=== PATIENT | female | born 1945 | race Caucasian/White ===

== ENCOUNTER 2017-08-08 08:53 | Inpatient (IN) | payer OTHER, BC ==
--- NOTE | 2017-08-08 09:13 | CPEKG ---
Heart Rate: 89 RR Interval: 674 P-R Interval: 136 QRSD Interval: 78 QT Interval: 368 QTC Interval: 448 P [place]: 72 QRS [place]: 22 T Wave [place]: 47 EKG Severity - ABNORMAL ECG - EKG Impression: ATRIAL-PACED COMPLEXES Electronically Signed By: Jim Rockwell 08-Aug-2017 12:17:24
[2017-08-08] MEDS ORDERED: KETOROLAC 30 MG/1 ML SDV IVP ONE (09:30)
[2017-08-08] MEDS ORDERED: ONDANSETRON 4 MG/2 ML VIAL IVP ONE (09:30)
[2017-08-08] MEDS ORDERED: HYDROmorphONE/DILAUDID 2 MG/ML INJ IVP ONE ×2 (09:30→13:01)
--- NOTE | 2017-08-08 09:38 | EDPHY ---
H & P Stated Complaint: sob/cp Time Seen by Provider: 08/08/17 09:15 - Personal History Current Tetanus/Diphtheria Vaccine: Yes - Medical/Surgical History Hx Asthma: No Hx Chronic Respiratory Disease: No Hx Diabetes: No Hx Cardiac Disease: Yes Hx Renal Disease: No Hx Cirrhosis: No Hx Alcoholism: No Hx HIV/AIDS: No Hx Splenectomy or Spleen Trauma: No Other PMH: cardiac disease/stents/pacemaker/RA - Social History Smoking Status: Former smoker Constitutional: Initial Vital Signs Temperature (C) 37 C 08/08/17 09:02 Heart Rate 76 08/08/17 09:02 Respiratory Rate 22 H 08/08/17 09:02 Blood Pressure 199/124 H 08/08/17 09:02 O2 Delivery Mode Nasal Cannula O2 (L/minute) 2 Allergies/Adverse Reactions: erythromycin base Allergy (Verified 08/08/17 08:57) Home Medications: Medication Instructions Recorded AMOXICILLIN 08/08/17 Amlodipine Besylate 08/08/17 Aspirin 81mg (*) 08/08/17 Atorvastatin Calcium 08/08/17 Lasix 08/08/17 Levothyroxine 08/08/17 Metoprolol Succinate 08/08/17 Potassium Chloride 08/08/17 Sertraline HCl 08/08/17 Vicodin 5-300 mg Tablet 08/08/17 Medical Decision Making - Diagnostics Imaging Results: Imaging Impressions Chest X-Ray 08/08/17 09:31 Impression: Moderate underlying bronchitis or possible pulmonary edema. Early infiltrate in both lower lobes versus atelectasis. Mild cardiomegaly. Other chronic findings, as above. Imaging: Discussed imaging studies w/ calliope player Radiologist, I viewed and interpreted images myself ED Course/Re-evaluation: CHIEF COMPLAINT: "I've got no air out here" HISTORY OF PRESENT ILLNESS: The patient is a 71 y/o female arriving with her family complaining of dyspnea worsening since arriving from [place] recently. Her medical history includes atrial fibrillation, CHF, hypertension, and CAD. She reports she has dyspnea at baseline while home in [place], but it has worsened significantly since arriving here and is much worse when lying flat. Symptoms are also exacerbated with exertion and even with talking. She has been using her CPAP to treat symptoms without alleviation. She's had a recent UTI that did not respond to a first course of antibiotics and pain spread to her left flank. She returned to her doctor and while waiting on urine cultures she was started on Cipro yesterday. She denies sensation of rapid heart rate, chest pain, nausea, vomiting, fever, recent trauma. REVIEW OF SYSTEMS: A 10 point review of systems was performed and is negative with the exception of the elements mentioned in the history of present illness. PHYSICAL EXAM: HR, BP 199/124, O2 Sat 94% on O2, RR. Temp noted General Appearance: Alert, well hydrated, appropriate, obese, slight tachypnea. Head: Atraumatic without scalp tenderness or obvious injury Eyes: Pupils equal, round, reactive to light and accommodation, EOMI, no trauma , no injection. Nose: Atraumatic, no rhinorrhea, clear. Throat: Mucus membranes moist. Neck: Supple, non-tender, no lymphadenopathy. Respiratory: No retractions, no distress, no wheezes, and no accessory muscle use. Lungs are clear to auscultation bilaterally. Few-word dyspnea and tachypnea. Cardiovascular: Regular rate and rhythm, no murmurs, rubs, or gallops. Good capillary refill all extremities. Gastrointestinal: Abdomen is soft, non-tender, non-distended, no masses, no rebound, no guarding, no peritoneal signs. Musculoskeletal: Normal active ROM of all extremities, atraumatic. Left CVA tenderness. Neurological: Alert, appropriate, and interactive. The patient has non-focal cranial nerves, motor, sensory, and cerebellar exam. Skin: No rashes, good turgor, no nodules on palpation. PAST MEDICAL HISTORY: CAD, atrial fibrillation, CHF - Lasix & CPAP, hyperlipidemia, hypertension, hypothyroidism PAST SURGICAL HISTORY: Pacemaker for bradycardia 2011, cardiac stent 2010; cholecystectomy SOCIAL HISTORY: Family at bedside. From [place], plans to drive back tomorrow. DIAGNOSTICS/PROCEDURES/CRITICAL CARE TIME: Chest x-ray: pulmonary edema consistent with CHF The 12 lead EKG was interpreted by myself. Atrial-paced rhythm, rate around 90. See hard copy and/or "tracemaster" electronic copy for interpretation. DIFFERENTIAL DIAGNOSIS: The differential diagnosis for the patient's shortness of breath and hypoxemia included but was not limited to pneumonia, myocardial infarction, acute mountain sickness, high altitude pulmonary edema, congestive heart failure, and pulmonary embolus. MEDICAL DECISION MAKING: This is a 71 y/o female with multiple comorbidities who is visiting with [place] and presents with azard-epna-nxgpennm dyspnea since arriving at altitude. She has dyspnea with speaking and is mildly tachypneic on exam. Lung sounds are clear. She does have left CVA tenderness and a known UTI. Consider CHF vs altitude-related dyspnea aggravating underlying disease. Plan for IV, labs, EKG , chest x-ray, antibiotics, and pain management. 30mg IV Toradol, 1mg IV Dilaudid, 4mg IV Zofran, 1gm IV Ceftriaxone, and 1L IV NS ordered. Nitro drip as needed to decrease afterload reduction. Chest x-ray shows bilateral pulmonary edema. BNP somewhat elevated at 370. Troponin normal. Nitro drip not administered as patient's BP has reduced to normal ranges. Reassessed patient and discussed work up. She continues to be uncomfortable. I' ve recommended admission for observation and to adjust medications for CHF symptoms, which she agrees to. Spoke with hospitalist service. Dr. Vaca accepts admission. - Data Points Laboratory Results: Laboratory Results 08/08/17 09:40 08/08/17 09:40 08/08/17 08/08/17 08/08/17 09:40 09:40 09:40 WBC 9.81 10^3/uL H 10^3/uL (3.80-9.50) RBC 4.36 10^6/uL 10^6/uL (4.18-5.33) Hgb 13.4 g/dL g/dL (12.6-16.3) Hct 40.1 % % (38.0-47.0) MCV 92.0 fL fL (81.5-99.8) MCH 30.7 pg pg (27.9-34.1) MCHC 33.4 g/dL g/dL (32.4-36.7) RDW 13.5 % % (11.5-15.2) Plt Count 177 10^3/uL 10^3/uL (150-400) MPV 9.9 fL fL (8.7-11.7) Neut % (Auto) 83.2 % H % (39.3-74.2) Lymph % (Auto) 5.8 % L % (15.0-45.0) Carver % (Auto) 6.9 % % (4.5-13.0) Eos % (Auto) 2.8 % % (0.6-7.6) Baso % (Auto) 0.5 % % (0.3-1.7) Nucleat RBC Rel Count 0.0 % % (0.0-0.2) Absolute Neuts (auto) 8.16 10^3/uL H 10^3/uL (1.70-6.50) Absolute Lymphs (auto) 0.57 10^3/uL L 10^3/uL (1.00-3.00) Absolute Monos (auto) 0.68 10^3/uL 10^3/uL (0.30-0.80) Absolute Eos (auto) 0.27 10^3/uL 10^3/uL (0.03-0.40) Absolute Basos (auto) 0.05 10^3/uL 10^3/uL (0.02-0.10) Absolute Nucleated RBC 0.00 10^3/uL 10^3/uL (0-0.01) Immature Gran % 0.8 % % (0.0-1.1) Immature Gran # 0.08 10^3/uL 10^3/uL (0.00-0.10) PT 14.2 SEC SEC (12.0-15.0) INR 1.08 (0.83-1.16) APTT 30.7 SEC SEC (23.0-38.0) D-Dimer 0.57 ug/mLFEU H ug/mLFEU (0.00-0.50) Sodium 139 mEq/L mEq/L (135-145) Potassium 3.9 mEq/L mEq/L (3.5-5.2) Chloride 104 mEq/L mEq/L (97-110) Carbon Dioxide 24 mEq/l mEq/l (22-31) Anion Gap 11 mEq/L mEq/L (8-16) BUN 16 mg/dL mg/dL (7-23) Creatinine 0.6 mg/dL mg/dL (0.6-1.0) Estimated GFR > 60 Glucose 190 mg/dL H mg/dL (70-100) Calcium 8.8 mg/dL mg/dL (8.5-10.4) Troponin I < 0.012 ng/mL ng/mL (0.000-0.034) NT-Pro-B Natriuret Pep 370 pg/mL H pg/mL (0-125) Medications Given: Discontinued Medications Hydromorphone HCl (Dilaudid) 1 mg IVP EDNOW ONE Stop: 08/08/17 09:31 Last Admin: 08/08/17 09:54 Dose: 1 mg Ceftriaxone Sodium/Dextrose (Rocephin 1 Gm (Premix)) 50 mls @ 100 mls/hr IV EDNOW ONE PRN Reason: Protocol Stop: 08/08/17 09:58 Last Admin: 08/08/17 09:56 Dose: 50 mls Sodium Chloride (Ns) 1,000 mls @ 0 mls/hr IV ONCE ONE; Wide Open PRN Reason: Protocol Stop: 08/08/17 09:50 Last Admin: 08/08/17 09:59 Dose: 1,000 mls Nitroglycerin/Dextrose (Nitroglycerin 200 Mcg/Ml (Premix)) 250 mls @ 0 mls/hr IV CONT ONE; Titrate PRN Reason: Protocol Stop: 08/08/17 10:30 Last Admin: 08/08/17 10:42 Dose: Not Given Ketorolac Tromethamine (Toradol) 30 mg IVP EDNOW ONE Stop: 08/08/17 09:31 Last Admin: 08/08/17 09:53 Dose: 30 mg Ondansetron HCl (Zofran) 4 mg IVP EDNOW ONE Stop: 08/08/17 09:31 Last Admin: 08/08/17 09:52 Dose: 4 mg Departure - Departure Disposition: [facility] Inpatient Acute Clinical Impression: Pyelonephritis, Orthopnea CHF exacerbation Qualifiers: Heart failure type: unspecified Qualified Code(s): I50.9 - Heart failure, unspecified Condition: Fair Referrals: YESSICA BELLO [Other] - As per Instructions Report Scribed for: Jim Rockwell Report Scribed by: Sherly Lauren Date of Report: 08/08/17 Time of Report: 09:55
[2017-08-08 09:47] LABS: PLATELET COUNT 177 10^3/uL (150-400)
[2017-08-08] MEDS ORDERED: NS 1,000 ML IV ONE (09:49)
[2017-08-08 10:02] LABS: INR 1.08 (0.83-1.16); PROTIME(PATIENT) 14.2 SEC (12.0-15.0)
[2017-08-08] MEDS ORDERED: NITROGLYCERIN/DEXTROSE 250 ML IV ONE (10:29)
[2017-08-08] MEDS ORDERED: FUROSEMIDE 40 MG/4 ML VIAL IVP ONE (10:31)
[2017-08-08] MEDS ORDERED: HYDROmorphONE/DILAUDID 1 MG/ML INJ IVP ONE (13:01)
[2017-08-08] MEDS ORDERED: HYDROmorphONE/DILAUDID 2 MG/ML INJ ONE (13:04)
[2017-08-08] MEDS ORDERED: ALBUTEROL 60 PUFFS/8 GM MDI IH PRN (13:23)
[2017-08-08] MEDS ORDERED: NITROGLYCERIN 0.4 MG BTL SL PRN (13:23)
[2017-08-08] MEDS ORDERED: ONDANSETRON 4 MG/2 ML VIAL IVP PRN (13:51)
[2017-08-08] MEDS ORDERED: ACETAMINOPHEN 325 MG TAB PO PRN (13:51)
[2017-08-08] MEDS ORDERED: ONDANSETRON DISINTEGRATING 4 MG TAB PO PRN (13:51)
[2017-08-08] MEDS ORDERED: oxyCODONE IR 15 MG TAB PO PRN (13:59)
--- NOTE | 2017-08-08 14:38 | GHP ---
[f rep st] HISTORY AND PHYSICAL DATE OF ADMISSION: 08/08/2017 HISTORY OF PRESENT ILLNESS: The patient is a 71-year-old female with history of hypertension, recent UTI, pacemaker, atrial fibrillation, and obstructive sleep apnea, who is visiting from [facility] to be precise. She has traveled here to see her sister a number of time. She presented here on T hursday and she felt progressive shortness of breath with orthopnea and PND. She also had some lower extremity edema. The symptoms were beginning in [place], such as dyspnea on exertion. She was recently diagnosed with either pyelonephritis or urinary tract infection. It is not entirely clear. The patient has left flank pain. She showed me the results of a urinalysis that grew out E coli from the 7th. It was sensitive to the fluoroquinolones and many cephalosporins. She had initia lly been prescribed an antibiotic she does not recall and then started on Cipro. She has not had fev er, chills, or drenching night sweats. She is not having urinary symptoms, but she did at the time o f presentation. She has orthopnea, lower extremity edema, and swelling. She is not having any chest pain or palpitat ions or tachycardia. REVIEW OF SYSTEMS: Complete 10-point review of systems conducted; negative except that noted in HPI. PAST MEDICAL HISTORY: Atrial fibrillation, pacemaker for sinus bradycardia, suspected heart failure, uncertain type. She has been told she has a tight valve, hypertension, obesity, obstructive sleep a pnea on CPAP. ALLERGIES: Erythromycin. HOME MEDICATIONS: Ciprofloxacin, furosemide, albuterol, amlodipine, enteric-coated aspirin, atorvast atin, hydrocodone, levothyroxine, lorazepam, metoprolol, nitroglycerin, potassium, sertraline. SOCIAL HISTORY: Lives in [place]. She is a nonsmoker, nondrinker. Quit smoking in her late 50s. FAMILY HISTORY: Daughter is present at the bedside and healthy. PHYSICAL EXAMINATION: VITAL SIGNS: Temp 37, blood pressure 199/124, pulse 76, breathing 22 times a minute. Blood pressure now 103/46. GENERAL: No acute distress. HEENT: Sclerae anicteric. Oropha rynx clear. Mucous membranes moist. NECK: Supple without lymphadenopathy. Cannot assess JVD secon matthieu to habitus. LUNGS: Some crackles at the bases bilaterally. HEART: S1, S2. Given her habitus , I am unable to hear a murmur. ABDOMEN: Soft, obese, nontender, nondistended. There is some left flank pain without radiation and no rebound or guarding. LOWER EXTREMITIES: Trace edema bilaterally . Calves are nontender. SKIN: Without rash. NEUROLOGIC: Negative straight leg raise; hence, ther e is no lower extremity weakness. DATA: UA is negative. White count is 9.8 with a left shift. Hematocrit is 40, platelets are 177,00 0. D-dimer is elevated. INR is normal. Chem-7 is normal other than glucose of 190. Troponin is le ss than 0.012. BNP is 370. Notably, on her phone she had small old labs showing a normal BNP from a couple of weeks ago. Chest x-ray interpreted by me shows congestive heart failure. EKG interpreted by me shows atrial paced rhythm at 89 with normal axis and intervals. I have discussed the case wit h Dr. Jim Rockwell. ASSESSMENT AND PLAN: 71-year-old female presents with acute on possibly chronic heart failure of unc ertain type, as well as left flank pain. 1. Heart failure. The patient has orthopnea, paroxysmal nocturnal dyspnea, crackles, elevated BNP a patrica her baseline. She has received some Lasix. I will continue it. This does not appear ischemic on the basis of her EKG. She has a negative troponin. I will not cycle. She does not have chest sy mptoms. a. We will obtain an echocardiogram. She is on a beta yenifer. She is not on CHERIE inhibitor. We wi ll wait to start that. 2. Flank pain in the setting of a recent urinary tract infection. She has a fever. She has moderat e leukocytosis. a. We will follow. She received ceftriaxone in the emergency department. A urine culture is pendin g. I will not continue antibiotics at this time. I will add a procalcitonin to her laboratory studi es. 3. Obstructive sleep apnea. We will continue her CPAP. 4. Acute hypoxemic respiratory failure secondary to pulmonary edema, as I see her chest x-ray. We w dania sanchez and follow. 5. Hypothyroidism. Continue levothyroxine. 6. Flank pain. She received some Toradol. I scheduled Tylenol as a p.r.n. and scheduled ibuprofen and some p.r.n. oxycodone. She does take narcotics chronically. DISPOSITION: Inpatient status. /[id number]/MODL
--- NOTE | 2017-08-08 15:00 | PDMN ---
Medical Necessity Medical necessity: C/M review: est. > 2 [place] LOS for acute - heart failure, orthopnea, nocturnal dyspnea, crackles, elevated BNP above baseline, hypoxic respiratory failure, secondary to pulmonary edema, flank pain in the setting of a recent urinary tract infection, fever, moderate leukocytosis, requiring IV Ceftriaxone in ED, planned echocardiogram, ongoing IV Lasix, pain management, cardiac monitoring, pulse oximetry, supplemental O2, [place], suspected chronic heart failure of uncertain type, BERNADETTE on CPAP, hypothyroidism, chronic narcotic medications, history of atrial fibrillation, pacemaker for sinus bradycardia, tight valve, hypertension, obesity per H/P.
[2017-08-08] MEDS: FUROSEMIDE 40 MG/4 ML VIAL IVP SCH (17:02)
[2017-08-08] MEDS: ACETAMINOPHEN 500 MG TAB PO SCH ×2 (17:03→20:53)
[2017-08-08] MEDS: IBUPROFEN 200 MG TAB PO SCH ×2 (18:08→23:39)
[2017-08-08] MEDS: METOPROLOL TARTRATE 50 MG TAB PO SCH (20:53)
[2017-08-08] MEDS: HYDROCODONE/APAP 10/325 TAB PO PRN (23:13)
--- NOTE | 2017-08-08 23:22 | CPEKG ---
Heart Rate: 75 RR Interval: 800 P-R Interval: 177 QRSD Interval: 90 QT Interval: 424 QTC Interval: 474 P [place]: 84 QRS [place]: 59 T Wave [place]: 16 EKG Severity - ABNORMAL ECG - EKG Impression: ATRIAL-PACED COMPLEXES EKG Impression: LOW VOLTAGE THROUGHOUT Electronically Signed By: Maxime Valenzuela 09-Aug-2017 06:31:22
[2017-08-09] MEDS: ACETAMINOPHEN 500 MG TAB PO SCH ×3 (02:33→21:04)
[2017-08-09] MEDS: LEVOTHYROXINE 50 MCG TAB PO SCH (05:50)
[2017-08-09] MEDS: IBUPROFEN 200 MG TAB PO SCH (05:50)
[2017-08-09] MEDS ORDERED: Herbals/Supplements -Info Only PO SCH (09:00)
[2017-08-09] MEDS: METOPROLOL TARTRATE 50 MG TAB PO SCH ×2 (09:13→21:03)
[2017-08-09] MEDS: SERTRALINE HCL 100 MG TAB PO SCH (09:14)
[2017-08-09] MEDS: ASPIRIN EC 81 MG TAB PO SCH (09:14)
[2017-08-09] MEDS: POTASSIUM CL 10 MEQ TAB PO SCH (09:14)
[2017-08-09] MEDS: ATORVASTATIN CALCIUM 20 MG TAB PO SCH (09:14)
[2017-08-09] MEDS: ENOXAPARIN 40 MG/0.4 ML SYR SC SCH (09:15)
[2017-08-09] MEDS: FUROSEMIDE 40 MG/4 ML VIAL IVP SCH ×2 (09:15→14:51)
[2017-08-09] MEDS: HYDROCODONE/APAP 10/325 TAB PO PRN (10:18)
--- NOTE | 2017-08-09 11:57 | ASMTCASEMG ---
Living Arrangements What is your living Answers: With Spouse arrangement? Who do you live with? Type Of Residence What kind of residence do Answers: House you live in? Discharge Plan Comments Coordination Status Comments Notes: Patient is a 71yo female with a hx of hypertension, who is visiting from [place], [place]. Patient came to visit her sister here in [place]. Patient has been admitted for heart failure, flank pain in the setting of a recent UTI, and acute hypoxic respiratory failure secondary to pulmonary edema. No therapies have been ordered. D/C plan will have to consider patient's plans to return to [place]. D/C plan TBD. CM will follow. Date Signed: 08/09/2017 11:57 AM Electronically Signed By:Veronica Gooden LCSW
--- NOTE | 2017-08-09 12:12 | ECHO ---
[email or web address] [address] [address] Main: [phone] Fax: Transthoracic Echocardiogram Name: MARIANA IRAHETA MR#: [id number] Study Date: 08/09/2017 Study Time: 10:38 AM Date of : 1945 Age: 71 year(s) Height: 162.6 cm (64 in.) Weight: 102.06 kg (225 lb.) BSA: 2.06 m2 Gender: Female Examination: Echo Indication: Hypoxia Image Quality: Contrast: Requested by: Constantine Vaca BP: 161 mmHg/64 mmHg Heart Rate: Rhythm: Indication: Hypoxia Procedure Staff Pollution Control Chemist: Scott Foss RDCS Reading Physician: [place] Perales MD Requesting Provider: Conclusions: No pericardial effusion. Ejection fraction 62%. Pacemaker in the right heart. Mild aortic stenosis with a mean gradient of 18 mm of mercury.Mild mitral annular calcification. Measurements: Chambers Valvular Assessment AV/MV Valvular Assessment TV/PV Normal Normal Normal Name Value Range Name Value Range Name Value Range Ao Jayla (MM): 2.0 cm (2.2 cm-3.7 AV Vmax: 3.11 m/s (1 m/s-1.7 PV Vmax: 0.73 m/s (0.6 m/s-0.9 cm) m/s) m/s) IVSd (2D): 0.9 cm (0.6 cm-1.1 AV maxP mmHg ( - ) PV PGmax: 2 mmHg ( - ) cm) AV meanP mmHg ( - ) LVDd (2D): 4.4 cm (3.9 cm-5.3 DEAN (VTI): 0.8 cm ( - ) cm) MV E Vmax: 1.14 m/s ( - ) LVDs (2D): 2.9 cm (2.1 cm-4 MV A Vmax: 1.28 m/s ( - ) cm) MV E/A: 0.89 ( - ) LVPWd (2D): 0.9 cm ( - ) LVOTd 1.9 cm 1.9 cm mm LVEF (2D): 62 (>=54 %) Continued Measurements: Chambers Valvular Assessment AV/MV Name Value Name Value LADs Lon.3 cm MV E' Septal: 0.04 m/s LA Area: 17.3 cm2 MV E/E' Septal: 25.40 LA Volume: 50 ml MV E/E' Lateral: 20.90 LA Volume Index: 24.3 ml/m2 Patient: MARIANA IRAHETA Study Date: 08/09/2017 Page 1 of 2 10:38 AM Findings: Left Ventricle: Normal size left ventricle. No LV hypertrophy. Normal global systolic LV function. EF is 62 %. No regional wall motion abnormality. Diastolic dysfunction is present. . Right Ventricle: Normal size right ventricle. Normal RV function. There is a pacemaker lead noted in the right ventricle. Left Atrium: The left atrium is normal in size. Right Atrium: The right atrium is normal in size. Mitral Valve: Mild mitral valve leaflet calcification is present. Aortic Valve: Moderate aortic cusp calcification is present. Mild calcific aortic valve stenosis. The the AO Vmax is 3.0 m/s with a mean PG of 18 mmHg. Tricuspid Valve: The tricuspid valve is normal in appearance and function. Pulmonic Valve: The pulmonic valve is normal in appearance and function. Aorta: The aorta is normal. Pericardium: No pericardial effusion. (No Signature Object) Patient: MARIANA IRAHETA Study Date: 08/09/2017 Page 2 of 2 10:38 AM [id number]
--- NOTE | 2017-08-09 13:35 | HOSPPROG ---
Hospitalist Progress Note Assessment/Plan: 71 yo F w AF, mild here w ahrf, flank pain ahrf: check ct pe given flank pain chf: had some pulm edema but echo w/out clear cause in that too mild and no diastolic/systolic dysfunction continue diuresis thru 08/10 af: rate controlled ? pyelonephritis: normal UA and low procalcitonin ct pe to eval flank pain proph: lmwh dispo: inpt Subjective: ekg overnight w atrial paced rhythm and no ischemic changes (interp by me). tele: no events (interp by me) Objective: Vital Signs Temp Pulse Resp BP Pulse Ox 36.6 C 74 16 117/69 96 08/09/17 11:51 08/09/17 11:51 08/09/17 11:51 08/09/17 11:51 08/09/17 11:51 Laboratory Results 08/09/17 04:21 08/08/17 08/09/17 08/10/17 05:59 05:59 05:59 Intake Total 900 Balance 900 PT 14.2 SEC (12.0-15.0) 08/08/17 09:40 INR 1.08 (0.83-1.16) 08/08/17 09:40 - Physical Exam Constitutional: no apparent distress, appears nourished Eyes: PERRL, anicteric sclera Ears, Nose, Mouth, Throat: moist mucous membranes, hearing normal Cardiovascular: regular rate and rhythym, no murmur, rub, or gallop, No systolic murmur Respiratory: no respiratory distress, no rales or rhonchi Gastrointestinal: normoactive bowel sounds, soft, non-tender abdomen Genitourinary: No encarnacion in urethra Skin: warm, normal color Musculoskeletal: full muscle strength, no muscle tenderness ICD10 Worksheet Patient Problems: Problems Problem Status Onset CHF exacerbation Acute Orthopnea Acute Pyelonephritis Acute
[2017-08-09] MEDS ORDERED: IOPAMIDOL (ISOVUE 370) 100 ML BTL IV ONE (13:43)
[2017-08-09] MEDS: LORazepam 0.5 MG TAB PO PRN (21:11)
[2017-08-10] MEDS: ACETAMINOPHEN 500 MG TAB PO SCH ×3 (05:24→20:33)
[2017-08-10] MEDS: LEVOTHYROXINE 50 MCG TAB PO SCH (05:24)
[2017-08-10] MEDS: ASPIRIN EC 81 MG TAB PO SCH (08:13)
[2017-08-10] MEDS: METOPROLOL TARTRATE 50 MG TAB PO SCH ×2 (08:14→20:33)
[2017-08-10] MEDS: ATORVASTATIN CALCIUM 20 MG TAB PO SCH (08:14)
[2017-08-10] MEDS: POTASSIUM CL 10 MEQ TAB PO SCH (08:14)
[2017-08-10] MEDS: SERTRALINE HCL 100 MG TAB PO SCH (08:14)
[2017-08-10] MEDS: ENOXAPARIN 40 MG/0.4 ML SYR SC SCH (08:14)
[2017-08-10] MEDS: FUROSEMIDE 40 MG/4 ML VIAL IVP SCH (08:14)
[2017-08-10] MEDS: HYDROCODONE/APAP 10/325 TAB PO PRN ×2 (08:31→16:49)
--- NOTE | 2017-08-10 11:23 | HOSPPROG ---
Hospitalist Progress Note Assessment/Plan: Patient is a 71-year-old female with history of hypertension, recent urinary tract infection, atrial fibrillation obstructive sleep apnea. She is visiting from [facility] and was noted to have ongoing shortness of breath. Today is my 1st encounter with the patient. Chart reviewed. elevated d dimer -CTA shows no PE diastolic chf: -will dc iv lasix, change to po lasix today -daily weights -fluid restrict (she drinks upto 4 liters plus of water daily) af: rate controlled -pacer Obesity w a bmi of 39.4 proph: lmwh Plan: will likely dc tomorrow morning, will dc IV dose of lasix. Suspect she will need oxygen on dc Subjective: Kiera is feeling better today. Still has some ongoing peripheral edema Objective: Vital Signs Temp Pulse Resp BP Pulse Ox 36.6 C 73 18 133/61 H 94 08/10/17 11:11 08/10/17 11:11 08/10/17 11:11 08/10/17 11:11 08/10/17 11:11 Laboratory Results 08/09/17 04:21 08/09/17 08/10/17 08/11/17 05:59 05:59 05:59 Intake Total 900 1020 Balance 900 1020 PT 14.2 SEC (12.0-15.0) 08/08/17 09:40 INR 1.08 (0.83-1.16) 08/08/17 09:40 - Physical Exam Constitutional: appears nourished, not in pain, obese Eyes: PERRL Ears, Nose, Mouth, Throat: hearing normal Cardiovascular: regular rate and rhythym, edema (lower extremity) Respiratory: no respiratory distress, clear to auscultation Skin: warm Musculoskeletal: full muscle strength Neurologic: AAOx3 Psychiatric: interacting appropriately ICD10 Worksheet Patient Problems: Problems Problem Status Onset CHF exacerbation Acute Orthopnea Acute Pyelonephritis Acute chronic disease mgmt/transitional care Acute
[2017-08-10] MEDS: FUROSEMIDE 40 MG TAB PO SCH (14:07)
[2017-08-10] MEDS: LORazepam 0.5 MG TAB PO PRN (23:10)
[2017-08-11] MEDS: LEVOTHYROXINE 50 MCG TAB PO SCH (06:07)
[2017-08-11] MEDS: ACETAMINOPHEN 500 MG TAB PO SCH (06:07)
[2017-08-11 07:26] VITALS: BP 141/68; RESP 98; TEMP 97.8
[2017-08-11] MEDS: ASPIRIN EC 81 MG TAB PO SCH (08:20)
[2017-08-11] MEDS: POTASSIUM CL 10 MEQ TAB PO SCH (08:20)
[2017-08-11] MEDS: ENOXAPARIN 40 MG/0.4 ML SYR SC SCH (08:20)
[2017-08-11] MEDS: ATORVASTATIN CALCIUM 20 MG TAB PO SCH (08:20)
[2017-08-11] MEDS: SERTRALINE HCL 100 MG TAB PO SCH (08:20)
[2017-08-11] MEDS: FUROSEMIDE 40 MG TAB PO SCH (08:20)
[2017-08-11] MEDS: METOPROLOL TARTRATE 50 MG TAB PO SCH (08:20)
--- NOTE | 2017-08-11 08:59 | HOSPPROG ---
Hospitalist Progress Note Assessment/Plan: Patient is a 71-year-old female with history of hypertension, recent urinary tract infection, atrial fibrillation obstructive sleep apnea. She is visiting from [facility] and was noted to have ongoing shortness of breath. Today is my 1st encounter with the patient. Chart reviewed. elevated d dimer -CTA shows no PE diastolic chf: -doing well w oral lasix -daily weights -fluid restrict (she drinks upto 4 liters plus of water daily) af: rate controlled -pacer hypoxemia -due to the above -will evaluate if she needs o2 at dc Obesity w a bmi of 39.4 proph: lmwh Plan: dc Subjective: Kiera is feeling much better today. Objective: Vital Signs Temp Pulse Resp BP Pulse Ox 36.6 C 76 98 H 141/68 H 1 L 08/11/17 07:24 08/11/17 08:20 08/11/17 07:24 08/11/17 08:20 08/11/17 07:24 Microbiology 08/08/17 11:35 Urine Culture - Final Unspecified Enterococcus Faecalis Two [place] Types Laboratory Results 08/11/17 04:53 08/10/17 08/11/17 08/12/17 05:59 05:59 05:59 Intake Total 1020 950 Balance 1020 950 PT 14.2 SEC (12.0-15.0) 08/08/17 09:40 INR 1.08 (0.83-1.16) 08/08/17 09:40 - Physical Exam Constitutional: not in pain, obese Eyes: PERRL Ears, Nose, Mouth, Throat: hearing normal Cardiovascular: regular rate and rhythym Respiratory: no respiratory distress, reduced air movement (bases) Gastrointestinal: normoactive bowel sounds Skin: warm Musculoskeletal: full muscle strength Neurologic: AAOx3 Psychiatric: interacting appropriately ICD10 Worksheet Patient Problems: Problems Problem Status Onset CHF exacerbation Acute Orthopnea Acute Pyelonephritis Acute chronic disease mgmt/transitional care Acute
--- NOTE | 2017-08-11 09:06 | PDHOMEO2F ---
Home Oxygen Face to Face Home Orders: I certify that a physician or a nurse practitioner or physician's assistant floor covering printer has had a rygt-dl-pafe encounter with this patient on the date of this order due to the diagnosis listed, which relates to the primary reason the patient requires home oxygen. Alternative treatments have been tried, or considered, and deemed ineffective. It is anticipated that supplemental oxygen will result in improvement with treatment. Home oxygen qualifying diagnosis: diastolic chf Home oxygen secondary diagnosis: pulm edema SpO2 on room air (%): 86 Frequency of home oxygen needed: continuous Home oxygen liters per minute: 2 Home oxygen delivery device: nasal cannula Concentrator: Yes E-tanks for mobility and back up: Yes If ordering portable O2, is the patient mobile in the home?: Yes I certify that, based on these findings, the home oxygen is medically necessary for this patient for the following length of time. Length of time home oxygen needed: 99 years
[2017-08-11 09:07] VITALS: PULSE 78; O2SAT 86
--- NOTE | 2017-08-11 10:01 | ASMTCMCOM ---
CM Note CM Note Notes: Spoke w/RN, pt will dc today w/family support and home O2. Will then travel back to [place], no other needs. CM available for any changes. DC Plan: Independent Date Signed: 08/11/2017 10:00 AM Electronically Signed By:Odessa Weber RN
--- NOTE | 2017-08-11 10:02 | ASMTLACE ---
LACE Length of stay for Answers: 2 days current admission Acuity / Level of Answers: Yes Care: Did the patient have an inpatient admission? Comorbidities - select Answers: Congestive heart failure all that apply Coronary Artery Disease Other Notes: HTN, HLD, # of Emergency department Answers: 1-2 visits in the last 6 months Score: 11 Date Signed: 08/11/2017 10:01 AM Electronically Signed By:Odessa Weber RN
--- NOTE | 2017-08-11 11:11 | GDS ---
[f rep st] DISCHARGE SUMMARY DISCHARGE DIAGNOSES: 1. Diastolic congestive heart failure. 2. Elevated D-dimer. 3. Atrial fibrillation. 4. Hypoxemia. 5. Obesity with a body mass index of 39.4. HISTORY: Briefly, the patient is a 71-year-old female visiting here from the [facility]. She has a history o f hypertension, recent urinary tract infection, atrial fibrillation, and obstructive sleep apnea. Sh layla was admitted with ongoing shortness of breath. HOSPITAL COURSE: 1. Diastolic congestive heart failure. She was treated with IV Lasix and improved. She is back to her oral Lasix regimen. Recommend that she do daily weights. If she increases weight by 3 pounds, t o follow up with her doctor. Also, recommend she fluid restrict. She drinks up to 4 L of water suzanne y. 2. Elevated D-dimer. CTA was performed, which shows no PE. 3. Atrial fibrillation, rate controlled. She has a pacer in place. 4. Hypoxemia. This is due to the heart failure, pulmonary edema, and obstructive sleep apnea. She will be discharged on oxygen for transport. She will follow up with her primary care provider in reg ann to this. DISCHARGE CONDITION: Stable. Blood pressure is 141/68, O2 saturation on 1 L 98%. Pulse is 76. Temp erature is 36.6 Celsius. Oxygen levels on room air are 86%. DISCHARGE INSTRUCTIONS: 1. Daily weights. 2. To follow up with her PCP as soon she returns to the [facility]. 3. If she develops fever, chills, chest pain, or shortness of breath, TO return to the ER. Greater than 30 minutes discharging and coordinating care. Copy requested to: PCP /[id number]/[id number]
== END 2017-08-11 12:53 | disposition home or self-care (01) | DRG 293 ==
LOC: OBSVTOIN 10:49 → F3E 15:02
PROVIDERS: ADMIT Internal Medicine; ATTEND Internal Medicine
DX: I11.0 Hypertensive heart disease with heart failure (principal); I50.30 Unspecified diastolic (congestive) heart failure; I48.91 Unspecified atrial fibrillation; R09.02 Hypoxemia; E66.9 Obesity, unspecified; E03.9 Hypothyroidism, unspecified; G47.33 Obstructive sleep apnea (adult) (pediatric); Z68.39 Body mass index [BMI] 39.0-39.9, adult; Z87.891 Personal history of nicotine dependence; Z95.0 Presence of cardiac pacemaker
CPT/HCPCS: 96365; J0696; J1170; J1650; J1885; J1940; J2405; Q9967